=== PATIENT | male | born 1970 | race African-American/Black ===

== ENCOUNTER 2016-10-30 13:40 | Observation (INO) | payer OTHER ==
--- NOTE | 2016-10-30 13:49 | PDOC ---
History of Present Illness - General Chief Complaint: Lightheaded Stated Complaint: DIZZINESS/DISORIENTED Time Seen by Provider: 10/30/16 13:49 History Source: Patient, Old Records Exam Limitations: No Limitations - History of Present Illness Initial Comments: 10/30/16 14:01 45-year-old male with history of diabeteson metformin, and morbid of obesity status post lap band years ago presents to the emergency Department with complaints of dizziness and diaphoresis, feeling unbalanced. The symptoms started shortly after he did a cycling class at the gym. The patient says that he completed the class and felt okay to himself home and when he got out of the car became profusely diaphoretic. His son drove him to the ED. He denies chest pain, shortness of breath, palpitations. His main complaint is that he feels unbalanced and that the room is spinning. Shortly after arrival to the ED the patient also complained of nausea. The patient states that he has a h/o vertigo in the past and he is feeling very similar to that episode right now. Past History - Travel Traveled outside of the country in the last 30 days: No - Past Medical History Allergies/Adverse Reactions: Allergies Allergy/AdvReac Type Severity Reaction Status Date / Time Penicillins Allergy Unknown Verified 10/30/16 13:42 Home Medications: Ambulatory Orders Metformin HCl [Glucophage] 500 mg PO DAILY 09/12/15 Anemia: No Asthma: No Cancer: No Cardiac Disorders: No CVA: No COPD: No CHF: No Dementia: No Diabetes: Yes (type 2) Dialysis: No GI Disorders: No Disorders: No HTN: No Hypercholesterolemia: No Liver Disease: No Seizures: No Thyroid Disease: No - Surgical History Abdominal Surgery: No Appendectomy: No Cardiac Surgery: No Cholecystectomy: Yes Lung Surgery: No Neurologic Surgery: No Orthopedic Surgery: No - Psycho/Social/Smoking Cessation Hx Anxiety: No Suicidal Ideation: No Smoking Status: No Smoking History: Never smoked Have you smoked in the past 12 months: No Number of Cigarettes Smoked Daily: 0 Hx Alcohol Use: No Drug/Substance Use Hx: No Substance Use Type: Alcohol Hx Substance Use Treatment: No Review of Systems - Review of Systems Able to Perform ROS?: Yes Is the patient limited [place] proficient: No Constitutional: Yes: Diaphoresis, Weakness HEENTM: No: Symptoms Reported Respiratory: No: Symptoms reported Cardiac (ROS): No: Symptoms Reported ABD/GI: No: Symptoms Reported : No: Symptoms Reported Musculoskeletal: No: Symptoms Reported Integumentary: No: Symptoms Reported Neurological: Yes: Weakness, Dizziness *Physical Exam - Physical Exam Comments: 10/30/16 13:56 GENERAL: Obese male, diaphoretic in mild to moderate distress. Awake and alert. HEENT: Normocephalic, atraumatic. PERRLA, EOMI. No conjunctival pallor. Sclera are non- icteric. Moist mucous membranes. Oropharynx is clear. NECK: Supple. Full ROM. No JVD. No lymphadenopathy. CARDIOVASCULAR: Regular rate and rhythm. No murmurs, rubs, or gallops. Distal pulses are 2+ and symmetric. PULMONARY: No evidence of respiratory distress. Diffusely diminished breath sounds but lungs clear to auscultation bilaterally. No wheezing, rales or rhonchi. ABDOMINAL: Obese abdomen that is soft. Non-tender. Non-distended. No rebound or guarding. No organomegaly. Normoactive bowel sounds. MUSCULOSKELETAL Normal range of motion at all joints. No bony deformities or tenderness. No CVA tenderness. EXTREMITIES: No cyanosis. No clubbing. trace bipedal edema. No calf tenderness. SKIN: Warm and dry. Normal capillary refill. No rashes. No jaundice. NEUROLOGICAL: Alert, awake, appropriate. Difficult exam secondary to the patient's c/o dizziness. Grossly non-focal exam. PSYCHIATRIC: Cooperative. Good eye contact. Appropriate mood and affect. ED Treatment Course - LABORATORY CBC & Chemistry Diagram: 10/30/16 13:15 10/30/16 13:51 Medical Decision Making - Medical Decision Making 10/30/16 14:01 35-year-old male with history of diabetes and vertigo in the past presents to the emergency department with feeling unbalanced, nauseated and diaphoretic shortly after completing a rigorous exercise routine. Differential diagnosis includes but is not limited to: ACS, vertigo, cardiac arrhythmia, pulmonary edema, dehydration, electrolyte abnormality, toxic/metabolic derangement. Plan: 1. EKG-NSR at 65 bpm; normal axis, intervals and no acute ST-segment changes 2. Fingerstick glucose--normal 3. Labs 4. Chest x-ray 5. IV fluids for hydration 6. Antiemetics 7. Observe and reevaluate 10/30/16 15:37 Addendum: labs reviewed and are noted in the EMR. Troponin is negative; CT head is negative. I have re-evaluated the patient at this time and he is feeling improved although is still experiencing some dizziness and nausea in spite of ativan, benadryl and zofran. Will admit to telemtry observation for serial cardiac enzymes and further management of vertiginous symptoms. I have discussed the case with the patient's PCP, Raheem Rodriguez who agrees with the plan. *DC/Admit/Observation/Transfer Diagnosis at time of Disposition: Vertigo, Dehydration, Dizziness - Discharge Dispostion Condition at time of disposition: Stable Admit: Yes
[2016-10-30] MEDS ORDERED: ONDANSETRON 4 MG/2 ML VIAL IVPUSH ONE ×2 (13:50→14:06)
[2016-10-30] MEDS ORDERED: SODIUM CHLORIDE 1,000 ML IV STA ×2 (13:50→14:23)
[2016-10-30 14:04] LABS: BASOPHIL 1.2 % (0-2.0); MCH 28.3 pg (25.7-33.7); MCHC 32.6 g/dl (32.0-35.9); MEAN CELL VOLUME 86.9 fl (80-96); MEAN PLT VOLUME 9.3 fl (7.5-11.1); NEUTROPHILS 72.3 % (42.8-82.8); PLATELET COUNT 324 K/MM3 (134-434); RDW 13.8 % (11.9-15.9)
[2016-10-30] MEDS ORDERED: ONDANSETRON 4 MG/2 ML VIAL ONE (14:06)
[2016-10-30] MEDS ORDERED: LORAZEPAM CARPU-JECT 2 MG/ML DISP.SYRIN IVPUSH ONE (14:23)
[2016-10-30 14:24] LABS: ACTIVATED PTT 26.8 SECONDS (24.0-38.9)
[2016-10-30] MEDS ORDERED: LORAZEPAM CARPU-JECT 2 MG/ML DISP.SYRIN ONE (14:24)
[2016-10-30 14:28] LABS: CPK(DFH) 504 IU/L (38-174)
[2016-10-30 14:29] LABS: INR 1.12 (0.82-1.09); PROTHROMBIN TIME (PATIENT) 12.5 SEC (10.2-13.0)
[2016-10-30 14:30] LABS: ALBUMIN 4.1 g/dl (3.5-5.0); ALK PHOS 74 U/L (32-92); ANION GAP 11 (8-16); BILIRUBIN,TOTAL 1.4 mg/dl (0.2-1.0); CALCIUM 9.7 mg/dl (8.4-10.2); CO2 18 mmol/L (22-28); CREATININE 1.1 mg/dl (0.6-1.3); GLUCOSE,RANDOM 106 mg/dl (74-106); MAGNESIUM 1.9 mg/dL (1.8-2.4); PHOSPHOROUS 1.6 mg/dl (2.5-4.6); SGOT/AST 29 U/L (10-42); SGPT/ALT 19 U/L (10-40)
[2016-10-30 15:22] LABS: TROPONIN I (DFP) < 0.03 ng/ml (0.03-0.50)
[2016-10-30 15:23] LABS: CK MB 4.5 ng/ml (0.3-4.0)
[2016-10-30 16:59] LABS: URINE APPEARANCE Clear; URINE BILIRUBIN Negative (NEGATIVE); URINE BLOOD Negative (NEGATIVE); URINE GLUCOSE (UA) Negative (NEGATIVE); URINE KETONE 3+ (NEGATIVE); URINE LEUK ESTERASE Negative (NEGATIVE); URINE NITRITE Negative (NEGATIVE); URINE PROTEIN Negative (NEGATIVE); URINE UROBILINOGEN 0.2 E.U/dl (0.2-1.0)
[2016-10-30 17:00] LABS: URINE COLOR YELLOW
[2016-10-30 17:35] VITALS: BMI 49.6
[2016-10-30] MEDS ORDERED: INFLUENZA VACCINE 45 MCG/0.5 ML (MDV 16-17) IM ONE (17:35)
[2016-10-30] MEDS ORDERED: ONDANSETRON *ODT* 4 MG TABLET SL PRN (20:56)
[2016-10-30] MEDS ORDERED: MECLIZINE HCL 25 MG TABLET (FP) PO PRN (20:56)
[2016-10-30 21:58] LABS: CPK(DFH) 317 IU/L (38-174)
[2016-10-30 22:11] LABS: CK MB 3.7 ng/ml (0.3-4.0); TROPONIN I (DFP) < 0.03 ng/ml (0.03-0.50)
[2016-10-30] MEDS: INSULIN SLIDING SCALE (NOVOLOG) 1 VIAL SQ SCH (22:24)
[2016-10-30 22:42] VITALS: BP 113/53; PULSE 87; TEMP 98.5
[2016-10-31] MEDS ORDERED: metFORMIN HCL 500 MG TABLET (FP) PO SCH (07:00)
[2016-10-31 08:49] LABS: CPK(DFH) 252 IU/L (38-174)
[2016-10-31] MEDS: INSULIN SLIDING SCALE (NOVOLOG) 1 VIAL SQ SCH ×3 (09:28→16:19)
[2016-10-31] MEDS ORDERED: ASPIRIN 325 MG ENTERIC COATED TABLET (FP) PO SCH (10:00)
[2016-10-31 10:21] LABS: TROPONIN I (DFP) < 0.03 ng/ml (0.03-0.50)
--- NOTE | 2016-10-31 12:41 | EKG ---
Test Reason : Blood Pressure : / mmHG Vent. Rate : 066 BPM Atrial Rate : 066 BPM P-R Int : 170 ms QRS Dur : 102 ms QT Int : 434 ms P-R-T Axes : 045 045 033 degrees QTc Int : 454 ms NORMAL SINUS RHYTHM NORMAL ECG NO PREVIOUS ECGS AVAILABLE Confirmed by TASHA JONES MD ([id number]) on 10/31/2016 12:40:49 PM Referred By: Raheem Rodriguez Confirmed By:TASHA JONES MD
[2016-10-31 14:37] LABS: CK MB 2.3 ng/ml (0.3-4.0)
== END 2016-10-31 16:20 | disposition home or self-care (01) ==
LOC: FER 13:40 → SUPCPDRO 13:40 → FM/S 16:52
PROVIDERS: ADMIT Family Medicine; ATTEND Family Medicine
DX: R55 Syncope and collapse (principal); R42 Dizziness and giddiness; E66.9 Obesity, unspecified; Z68.42 Body mass index [BMI] 45.0-49.9, adult; Z71.3 Dietary counseling and surveillance; Z98.84 Bariatric surgery status; E11.9 Type 2 diabetes mellitus without complications; E86.0 Dehydration
CPT/HCPCS: 36415; 70450-TC; 71010-TC; 80053; 81003; 82550; 82553; 83690; 83735; 83880; 84100; 84484; 85025; 85610; 85730; 93005; 99285-25; G0378; Q2037

== ENCOUNTER 2017-07-16 16:48 | Emergency (ER) | payer OTHER ==
[2017-07-16 16:55] VITALS: BP 138/83; PULSE 84; TEMP 98.3; BMI 49.8
--- NOTE | 2017-07-16 16:57 | PDOC ---
History of Present Illness - General Chief Complaint: Pain Stated Complaint: ABD PAIN Time Seen by Provider: 07/16/17 16:55 History Source: Patient Exam Limitations: No Limitations - History of Present Illness Initial Comments: 07/16/17 17:52 46M with pmh of controlled diabetes present with right sided abdominal pain for the apst 10 Send in by pcp Raheem Rodriguez to evaluate for appendicitis. Patient is afebrile, but pain is sharp 10/10 and moves from the midline to the right aat the level of the umbilicus and prevented him from sleeping for the past 3 nights. , Not associated with meals Patient has gastric sleeve surgery 10years ago. Takes metformin and insulin for diabetes. 07/16/17 18:10 07/16/17 18:13 07/16/17 19:46 Past History - Past Medical History Allergies/Adverse Reactions: Allergies Allergy/AdvReac Type Severity Reaction Status Date / Time Penicillins Allergy Unknown Verified 07/16/17 16:50 Home Medications: Ambulatory Orders Metformin HCl [Glucophage] 500 mg PO BID 09/12/15 Anemia: No Asthma: No Cancer: No Cardiac Disorders: No CVA: No COPD: No CHF: No Dementia: No Diabetes: Yes (type 2) Dialysis: No GI Disorders: No Disorders: No HTN: No Hypercholesterolemia: No Liver Disease: No Seizures: No Thyroid Disease: No - Surgical History Abdominal Surgery: Yes (lap band 2008) Appendectomy: No Cardiac Surgery: No Cholecystectomy: Yes Lung Surgery: No Neurologic Surgery: No Orthopedic Surgery: Yes - Suicide/Smoking/Psychosocial Hx Smoking Status: No Smoking History: Current some day smoker Have you smoked in the past 12 months: Yes Number of Cigarettes Smoked Daily: 0 Cigars Per Day: 1 Information on smoking cessation initiated: Yes 'Breaking Loose' booklet given: 07/16/17 Hx Alcohol Use: (occasional) Drug/Substance Use Hx: No Substance Use Type: Alcohol Hx Substance Use Treatment: No Review of Systems - Review of Systems Able to Perform ROS?: Yes Is the patient limited Thai proficient: No Constitutional: Yes: Symptoms Reported HEENTM: No: Symptoms Reported Respiratory: No: Symptoms reported Cardiac (ROS): No: Symptoms Reported ABD/GI: Yes: Abdominal Distended. No: Rectal Bleeding, Vomiting, Indigestion, Abdominal cramping : No: Symptoms Reported *Physical Exam - Vital Signs Last Vital Signs Temp Pulse Resp BP Pulse Ox 98.3 F 84 18 138/83 97 07/16/17 16:48 07/16/17 16:48 07/16/17 16:48 07/16/17 16:48 07/16/17 16:48 - Physical Exam General Appearance: Yes: Nourished, Appropriately Dressed, Moderate Distress, Obese HEENT: positive: EOMI, [place], Normal ENT Inspection Neck: positive: Trachea midline, Normal Thyroid. negative: Tender Respiratory/Chest: positive: Lungs Clear, Normal Breath Sounds. negative: Chest Tender Cardiovascular: positive: Regular Rhythm, Regular Rate, S1, S2 Gastrointestinal/Abdominal: positive: Normal Bowel Sounds, Tender (epigastric), Soft, Protuberent ED Treatment Course - LABORATORY CBC & Chemistry Diagram: 07/16/17 17:40 07/16/17 18:00 Medical Decision Making - Medical Decision Making 07/16/17 18:14 46M with pmh of diabetes presents with right-sided abdominal pain. Labs and lytes ordered as well as lipase. Appendicitis (right sided abd. pain although not at mcBurney point location and afebrile) vs abd strictures vs gastritis. Abdominal US US pending (History of remote cholecystectomy remembered by patient ) Ct abd and pelvis with PO and IV contrast pending. 07/16/17 19:46 Patient signed out to Dr. Barba *DC/Admit/Observation/Transfer Diagnosis at time of Disposition: Abdominal pain - Discharge Dispostion Condition at time of disposition: Stable
[2017-07-16 17:54] LABS: MCH 29.3 pg (25.7-33.7); MCHC 33.5 g/dl (32.0-35.9); MEAN CELL VOLUME 87.6 fl (80-96); PLATELET COUNT 303 K/MM3 (134-434); WHITE BLOOD COUNT 8.6 K/mm3 (4.0-10.8)
[2017-07-16 18:31] LABS: ALBUMIN 3.6 g/dl (3.5-5.0); ALK PHOS 71 U/L (32-92); ANION GAP 8 (8-16); BILIRUBIN,TOTAL 0.6 mg/dl (0.2-1.0); CALCIUM 9.2 mg/dl (8.4-10.2); CO2 25 mmol/L (22-28); GLUCOSE,RANDOM 91 mg/dl (74-106); SGOT/AST 18 U/L (10-42); SGPT/ALT 15 U/L (10-40); TOT PROT 7.4 g/dl (6.4-8.3)
[2017-07-16 19:11] LABS: PLATELET ESTIMATE ADEQUATE (NORMAL)
[2017-07-16 20:03] LABS: PH,URINE 5.5 (4.5-8); URINE APPEARANCE Clear; URINE BILIRUBIN Negative (NEGATIVE); URINE GLUCOSE (UA) Negative (NEGATIVE); URINE KETONE Negative (NEGATIVE); URINE LEUK ESTERASE Negative (NEGATIVE); URINE NITRITE Negative (NEGATIVE); URINE PROTEIN Negative (NEGATIVE); URINE UROBILINOGEN 0.2 (0.2-1.0)
[2017-07-16 20:05] LABS: URINE BLOOD Trace-lysed (NEGATIVE); URINE COLOR YELLOW
[2017-07-16] MEDS ORDERED: ONDANSETRON 4 MG/2 ML VIAL IVPUSH ONE (20:08)
[2017-07-16] MEDS ORDERED: SODIUM CHLORIDE 1,000 ML IV STA (20:08)
[2017-07-16] MEDS ORDERED: morphine CARPU-JECT 4 MG/1 ML DISP.SYRIN IVPUSH ONE (20:08)
[2017-07-16] MEDS ORDERED: morphine SULFATE 4 MG/ML VIAL ONE (20:09)
[2017-07-16] MEDS ORDERED: ONDANSETRON 4 MG/2 ML VIAL ONE (20:09)
[2017-07-16 20:40] LABS: URINE BACTERIA FEW /hpf (NEGATIVE); URINE WBC 0-2 (3-5)
--- NOTE | 2017-07-16 20:41 | PDOC ---
Attending Attestation - Resident Resident Name: CrowMati - ED Attending Attestation I have performed the following: I have examined & evaluated the patient, The case was reviewed & discussed with the resident, I agree w/resident's findings & plan, Exceptions are as noted - HPI HPI: 07/16/17 20:35 Right sided abdominal pain, hx of appendectomy and cholecystectomy - Physicial Exam PE: 07/16/17 20:35 Diffuse Tenderness, Morbidly Obese, No Peritoneal Signs - Medical Decision Making 07/16/17 20:[address] all non-diagnostic/benign DX is abdominal pain, cause yet to be determined. Will offer pain and nausea meds and have patient follow up as an outpatient with PMD Discharge Disposition - Diagnosis Abdominal pain Qualifiers: Abdominal location: generalized Qualified Code(s): R10.84 - Generalized abdominal pain; R10.84 - Generalized abdominal pain - Discharge Dispostion Condition at time of disposition: Stable Last Admission D/C Date: 07/19/10 Admit: No - Patient Instructions Additional Instructions: Mr Conteh. Sorry that you are hurting. Your lab tests are normal and your CT scan does not show any acute problem. It is not clear why you are hurting. I wrote a prescription for pain medicine and nausea medicine, Percocet and Zofran ODT. Use the to stay comfortable and follow up with your regular doctor(s) later this week. Return to us if worse or any new symptoms occur. Best- Dr. Jacob Barba
== END 2017-07-16 20:59 | disposition home or self-care (01) ==
LOC: FER 16:48
PROC: 3E033NZ Introduction of Analgesics, Hypnotics, Sedatives into Peripheral Vein, Percutaneous Approach (ICD-10-PCS; principal; 2017-07-16)
PROC: 3E033GC Introduction of Other Therapeutic Substance into Peripheral Vein, Percutaneous Approach (ICD-10-PCS; 2017-07-16)
PROC: 3E0337Z Introduction of Electrolytic and Water Balance Substance into Peripheral Vein, Percutaneous Approach (ICD-10-PCS; 2017-07-16)
DX: R10.9 Unspecified abdominal pain (principal); Z79.84 Long term (current) use of oral hypoglycemic drugs; Z98.84 Bariatric surgery status; F17.210 Nicotine dependence, cigarettes, uncomplicated; E11.9 Type 2 diabetes mellitus without complications
CPT/HCPCS: 36415; 74177-TC; 76705-TC; 80053; 81003; 81015; 82247; 83690; 85025; 99283-25

== ENCOUNTER 2019-01-10 01:20 | Emergency (ER) | payer OTHER ==
[2019-01-10 01:29] VITALS: BP 116/82; PULSE 84; TEMP 98.5; BMI 49.9
--- NOTE | 2019-01-10 01:32 | PDOC ---
History of Present Illness - General Chief Complaint: Pain Stated Complaint: FINGERTIP SWELLING Time Seen by Provider: 01/10/19 01:31 - History of Present Illness Initial Comments: 01/10/19 01:59 This 48-year-old man with a history of type II DM and morbid obesity presents with several hour history of pain and mild swelling in the distal phalanx of the left third finger. Patient works at [employer]; he noted discomfort in the finger while working this evening. No history of trauma to the area. He denies biting his fingernails and has no previous history of paronychia. He has noted no drainage from the nail. No history of fever/ chills. He denies infection or colonization with resistant organisms. Patient has a history of penicillin ALLERGY (unknown type of ALLERGIC response) Medications Metformin Diclofenac (taken twice daily for knee pain) Past History - Past Medical History Allergies/Adverse Reactions: Allergies Allergy/AdvReac Type Severity Reaction Status Date / Time Penicillins Allergy Unknown Verified 07/16/17 16:50 Home Medications: Ambulatory Orders Metformin HCl [Glucophage] 500 mg PO BID 09/12/15 Diclofenac Sodium 75 mg PO BID 01/10/19 Sulfamethoxazole/Trimethoprim [Bactrim Ds -] 1 tab PO BID #10 tablet 01/10/19 Anemia: No Asthma: No Cancer: No Cardiac Disorders: No CVA: No COPD: No CHF: No Dementia: No Diabetes: Yes (type 2) Dialysis: No GI Disorders: No Disorders: No HTN: No Hypercholesterolemia: No Liver Disease: No Seizures: No Thyroid Disease: No - Surgical History Abdominal Surgery: Yes (lap band 2008) Appendectomy: No Cardiac Surgery: No Cholecystectomy: Yes Lung Surgery: No Neurologic Surgery: No Orthopedic Surgery: Yes - Suicide/Smoking/Psychosocial Hx Smoking Status: No Smoking History: Never smoked Have you smoked in the past 12 months: Yes Number of Cigarettes Smoked Daily: 0 Cigars Per Day: 1 'Breaking Loose' booklet given: 07/16/17 Hx Alcohol Use: (occasional) Drug/Substance Use Hx: No Substance Use Type: Alcohol Hx Substance Use Treatment: No Review of Systems - Review of Systems Able to Perform ROS?: Yes Comments:: 12 point review of systems is negative except for what is noted in the history of present illness *Physical Exam - Vital Signs Last Vital Signs Temp Pulse Resp BP Pulse Ox 98.5 F 84 16 116/82 96 01/10/19 01:23 01/10/19 01:23 01/10/19 01:23 01/10/19 01:23 01/10/19 01:23 - Physical Exam Comments: GENERAL: Adult male, morbidly obese, alert and oriented 3, in no acute distress HEAD: Normal with no signs of trauma. EYES: PERRLA, EOMI, sclera anicteric, conjunctiva clear. EXTREMITIES: Left third finger- moderate tenderness with mild edema ulnar aspect of distal phalanx at nail edge without fluctuance, erythema or discharge Moderate edema of palmar aspect of distal phalanx No pain with active or passive movement of the finger Remainder of the extremity exam is normal NEUROLOGICAL: Cranial nerves II through XII grossly intact. Normal speech. No focal neurological deficits. MUSCULOSKELETAL: Back non-tender to palpation, no CVA tenderness Medical Decision Making - Medical Decision Making This 48-year-old man with a history of morbid obesity and type 2 DM presents with a few hour history of swelling and pain in the distal phalanx of the third finger of his left hand. No history of trauma noted. Exam consistent with early paronychia. Since there is no fluctuance in the area, incision and drainage not performed at this time. Instead, the patient will be started on antibiotics and strongly urged to soak the finger in warm water at least 3 times a day, for 15 minutes each time. Bactrim DS 1 tablet given here and patient will be given a five-day course of the antibiotic. 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 Patient should return to the ER if there is increase in swelling/ pain or if there is fever/chills *DC/Admit/Observation/Transfer Diagnosis at time of Disposition: Paronychia of left middle finger - Discharge Dispostion Disposition: HOME Condition at time of disposition: Stable - Prescriptions Prescriptions: Sulfamethoxazole/Trimethoprim [Bactrim Ds -] 1 tab PO BID #10 tablet - Referrals Referrals: Raheem Rodriguez MD [Primary Care Provider] - - Patient Instructions Printed Discharge Instructions: Paronychia Additional Instructions: Soak finger in warm water at least 3 times a day for 15 minutes each time for the next 3-4 days Bactrim DS twice a day for the next 5 days; next dose tomorrow morning Tylenol as needed for pain; elevate finger as much as possible Return to ER if you have increase in swelling/pain or you have drainage from edge of the fingernail - Post Discharge Activity Forms/Work/School Notes: Back to Work
[2019-01-10] MEDS ORDERED: SULFAMETHOXAZOLE/TRIMETHOPRIM 800MG/160MG D.S. TABLET PO ONE (01:42)
[2019-01-10] MEDS ORDERED: IBUPROFEN 600 MG TABLET (FP) PO ONE ×2 (01:43→01:44)
[2019-01-10] MEDS ORDERED: SULFAMETHOXAZOLE/TRIMETHOPRIM 800MG/160MG D.S. TABLET ONE (01:44)
== END 2019-01-10 01:56 | disposition home or self-care (01) ==
LOC: FER 01:20
DX: L03.012 Cellulitis of left finger (principal); E11.9 Type 2 diabetes mellitus without complications; E66.01 Morbid (severe) obesity due to excess calories; Z68.42 Body mass index [BMI] 45.0-49.9, adult; Z79.84 Long term (current) use of oral hypoglycemic drugs; Z88.0 Allergy status to penicillin; Z98.84 Bariatric surgery status
CPT/HCPCS: 99281-25

== ENCOUNTER 2020-10-05 07:27 | Emergency (ER) | payer OTHER ==
[2020-10-05] MEDS ORDERED: ACETAMINOPHEN 325 MG TABLET (FP) PO ONE (07:35)
[2020-10-05] MEDS ORDERED: ACETAMINOPHEN 325 MG TABLET (FP) ONE (07:36)
[2020-10-05 07:40] VITALS: BP 142/86; PULSE 76; TEMP 98.9; BMI 40.2
[2020-10-05] MEDS ORDERED: KETOROLAC TROMETHAMINE 30 MG/1 ML VIAL IM ONE (09:54)
[2020-10-05] MEDS ORDERED: KETOROLAC TROMETHAMINE 30 MG/1 ML VIAL ONE (10:03)
== END 2020-10-05 10:09 | disposition home or self-care (01) ==
LOC: FER 07:27
PROC: 3E0233Z Introduction of Anti-inflammatory into Muscle, Percutaneous Approach (ICD-10-PCS; principal; 2020-10-05)
DX: S09.90XA Unspecified injury of head, initial encounter (principal); R51.9 Headache, unspecified; M62.838 Other muscle spasm
CPT/HCPCS: 70450-TC; 99284-25; C9803; U0003

== ENCOUNTER 2021-02-04 01:04 | Emergency (ER) | payer OTHER ==
[2021-02-04] MEDS ORDERED: KETOROLAC TROMETHAMINE 60 MG/2 ML VIAL ONE (01:35)
[2021-02-04] MEDS ORDERED: KETOROLAC TROMETHAMINE 60 MG/2 ML VIAL IM ONE (01:35)
[2021-02-04 01:41] VITALS: BP 112/76; PULSE 86; TEMP 98.2; BMI 40.2
== END 2021-02-04 01:53 | disposition home or self-care (01) ==
LOC: FER 01:04
PROC: 3E0233Z Introduction of Anti-inflammatory into Muscle, Percutaneous Approach (ICD-10-PCS; principal; 2021-02-04)
DX: M54.12 Radiculopathy, cervical region (principal)
CPT/HCPCS: 99284-25

== ENCOUNTER 2021-03-08 11:46 | Emergency (ER) | payer OTHER ==
[2021-03-08 11:54] VITALS: BP 132/83; PULSE 78; TEMP 98.1; BMI 39.7
== END 2021-03-08 12:19 | disposition home or self-care (01) ==
LOC: FER 11:46
DX: S13.4XXA Sprain of ligaments of cervical spine, initial encounter (principal)
CPT/HCPCS: 99281-25

== ENCOUNTER 2021-05-07 10:29 | Emergency (ER) | payer OTHER ==
[2021-05-07 10:37] VITALS: BP 122/80; PULSE 79; TEMP 98.6; BMI 38.9
[2021-05-07] MEDS ORDERED: IBUPROFEN 600 MG TABLET (FP) PO ONE ×2 (10:47)
== END 2021-05-07 11:14 | disposition home or self-care (01) ==
LOC: FER 10:29
DX: M25.562 Pain in left knee (principal)
CPT/HCPCS: 73560-TC-LT-FY; 99283-25

== ENCOUNTER 2021-11-27 22:13 | Inpatient (IN) | payer OTHER ==
[2021-11-27 22:25] VITALS: BMI 44.0
[2021-11-27] MEDS ORDERED: ACETAMINOPHEN 1000 MG/100 ML BAG IVPB ONE (22:31)
[2021-11-27] MEDS ORDERED: ACETAMINOPHEN INJECTION 100 ML IVPB ONE (22:48)
[2021-11-27 23:20] LABS: ALBUMIN 3.6 g/dl (3.4-5.0); BILIRUBIN,TOTAL 1.2 mg/dl (0.2-1); CALCIUM 9.2 mg/dl (8.5-10); TOT PROT 7.3 g/dl (6.4-8.2)
[2021-11-27] MEDS ORDERED: VANCOMYCIN 1 GM in D5W (PRE-DOCKED) 1,000 MG/250 ML IVPB ONE (23:41)
[2021-11-27] MEDS ORDERED: CLINDAMYCIN 900 MG PREMIX IVPB 900 MG/50 ML BAG IVPB ONE (23:45)
[2021-11-27 23:56] LABS: BASO % 0.5 % (0-2.0); EOS % 0.5 % (0-4.5); HEMATOCRIT 38.5 % (35.4-49); HEMOGLOBIN 12.7 GM/dL (11.7-16.9); LYMPH % 7.6 % (8-40); MCH 29.7 pg (25.7-33.7); MEAN CELL VOLUME 90.1 fl (80-96); MEAN PLT VOLUME 8.8 fl (7.5-11.1); NEUT % 85.4 % (42.8-82.8); PLATELET COUNT 274 10^3/uL (134-434); RBC 4.27 M/mm3 (4.00-5.60); RDW 14.8 % (11.9-15.9); WHITE BLOOD COUNT 15.8 K/mm3 (4.0-10.0)
[2021-11-27] MEDS ORDERED: CLINDAMYCIN PHOSPHATE 600 MG/4 ML VIAL ONE (23:56)
[2021-11-27] MEDS ORDERED: VANCOMYCIN 1,000 MG VIAL (RESTRICTED TO ID ONLY) ONE (23:56)
[2021-11-27] MEDS ORDERED: CLINDAMYCIN PHOSPHATE 300 MG/2 ML VIAL ONE ×2 (23:56→23:58)
[2021-11-27] MEDS ORDERED: CLINDAMYCIN 600MG PREMIX IVPB 600 MG/50 ML BAG IVPB ONE (23:57)
[2021-11-28 07:47] LABS: CALCIUM 8.7 mg/dl (8.5-10); CREATININE 1.1 mg/dl (0.55-1.3)
[2021-11-28] MEDS: ACETAMINOPHEN 325 MG TABLET (FP) PO PRN ×3 (09:00→19:17)
[2021-11-28] MEDS: HEPARIN NA (PORCINE) 5,000 UNITS/ML 1ML VIAL SQ SCH ×2 (09:47→21:38)
[2021-11-28] MEDS ORDERED: CLINDAMYCIN 600MG PREMIX IVPB 600 MG/50 ML BAG IVPB SCH (10:00)
[2021-11-28 10:21] LABS: BASO % 0.3 % (0-2.0); EOS % 0.6 % (0-4.5); HEMATOCRIT 37.3 % (35.4-49); HEMOGLOBIN 12.5 GM/dL (11.7-16.9); LYMPH % 7.8 % (8-40); MCH 30.3 pg (25.7-33.7); MCHC 33.4 g/dl (32.0-35.9); MEAN CELL VOLUME 90.6 fl (80-96); MONO % 7.7 % (3.8-10.2); NEUT % 83.6 % (42.8-82.8); PLATELET COUNT 261 10^3/uL (134-434); RBC 4.11 M/mm3 (4.00-5.60); RDW 14.4 % (11.9-15.9); WHITE BLOOD COUNT 14.8 K/mm3 (4.0-10.0)
[2021-11-28] MEDS: INSULIN SLIDING SCALE (NOVOLOG) 1 VIAL SQ SCH ×2 (11:54→16:49)
[2021-11-28] MEDS ORDERED: VANCOMYCIN/WATER BAGS 1,250 MG/250 ML BAG IVPB SCH (13:00)
[2021-11-28] MEDS: MELATONIN 5 MG TABLETS PO PRN (21:37)
[2021-11-29] MEDS: ACETAMINOPHEN 325 MG TABLET (FP) PO PRN ×4 (01:11→21:58)
[2021-11-29] MEDS: INSULIN SLIDING SCALE (NOVOLOG) 1 VIAL SQ SCH ×3 (06:58→16:53)
[2021-11-29 08:02] LABS: CALCIUM 8.6 mg/dl (8.5-10)
[2021-11-29] MEDS: HEPARIN NA (PORCINE) 5,000 UNITS/ML 1ML VIAL SQ SCH ×2 (09:24→21:27)
[2021-11-29 09:46] LABS: BASO % 0.2 % (0-2.0); EOS % 0.4 % (0-4.5); HEMOGLOBIN 12.3 GM/dL (11.7-16.9); LYMPH % 6.5 % (8-40); MCH 30.3 pg (25.7-33.7); MCHC 33.4 g/dl (32.0-35.9); MEAN CELL VOLUME 90.6 fl (80-96); MEAN PLT VOLUME 8.9 fl (7.5-11.1); MONO % 7.7 % (3.8-10.2); NEUT % 85.2 % (42.8-82.8); PLATELET COUNT 254 10^3/uL (134-434); RBC 4.08 M/mm3 (4.00-5.60); RDW 14.6 % (11.9-15.9); WHITE BLOOD COUNT 15.1 K/mm3 (4.0-10.0)
[2021-11-29] MEDS ORDERED: LIDOCAINE HCL 1%, 10 MG/ML (50 mL VIAL) SQ ONE (11:29)
[2021-11-29] MEDS ORDERED: LIDOCAINE HCL 1%, 10 MG/ML (20ML VIAL) SQ ONE (12:00)
[2021-11-29] MEDS ORDERED: oxyCODONE HCL 5 MG TABLET PO PRN (15:44)
[2021-11-29] MEDS ORDERED: morphine SULFATE 4 MG/ML VIAL SQ PRN (15:44)
[2021-11-29] MEDS: oxyCODONE HCL 5 MG TABLET PO PRN (20:05)
[2021-11-30] MEDS: MELATONIN 5 MG TABLETS PO PRN (03:43)
[2021-11-30] MEDS: INSULIN SLIDING SCALE (NOVOLOG) 1 VIAL SQ SCH ×3 (06:53→16:43)
[2021-11-30 07:47] LABS: ALBUMIN 2.7 g/dl (3.4-5.0); BILIRUBIN,TOTAL 0.8 mg/dl (0.2-1); CALCIUM 8.6 mg/dl (8.5-10); MAGNESIUM 1.8 mg/dL (1.8-2.4); TOT PROT 6.4 g/dl (6.4-8.2)
[2021-11-30 08:18] LABS: BASO % 0.3 % (0-2.0); EOS % 0.6 % (0-4.5); HEMATOCRIT 34.4 % (35.4-49); HEMOGLOBIN 11.7 GM/dL (11.7-16.9); LYMPH % 7.1 % (8-40); MCH 30.3 pg (25.7-33.7); MCHC 33.9 g/dl (32.0-35.9); MEAN CELL VOLUME 89.4 fl (80-96); MEAN PLT VOLUME 8.4 fl (7.5-11.1); MONO % 9.5 % (3.8-10.2); NEUT % 82.5 % (42.8-82.8); PLATELET COUNT 252 10^3/uL (134-434); RBC 3.85 M/mm3 (4.00-5.60); RDW 14.3 % (11.9-15.9); WHITE BLOOD COUNT 13.4 K/mm3 (4.0-10.0)
[2021-11-30] MEDS: HEPARIN NA (PORCINE) 5,000 UNITS/ML 1ML VIAL SQ SCH ×2 (09:55→21:22)
[2021-11-30] MEDS: oxyCODONE HCL 5 MG TABLET PO PRN (16:17)
[2021-11-30] MEDS: ACETAMINOPHEN 325 MG TABLET (FP) PO PRN (20:11)
[2021-12-01] MEDS: oxyCODONE HCL 5 MG TABLET PO PRN ×4 (00:48→20:27)
[2021-12-01] MEDS: INSULIN SLIDING SCALE (NOVOLOG) 1 VIAL SQ SCH ×3 (06:21→17:01)
[2021-12-01] MEDS: ACETAMINOPHEN 325 MG TABLET (FP) PO PRN (06:23)
[2021-12-01] MEDS: HEPARIN NA (PORCINE) 5,000 UNITS/ML 1ML VIAL SQ SCH ×2 (09:44→21:34)
[2021-12-01 09:57] LABS: BASO % 0.6 % (0-2.0); HEMATOCRIT 37.3 % (35.4-49); HEMOGLOBIN 12.5 GM/dL (11.7-16.9); LYMPH % 9.8 % (8-40); MCH 30.2 pg (25.7-33.7); MCHC 33.5 g/dl (32.0-35.9); MEAN CELL VOLUME 90.3 fl (80-96); MEAN PLT VOLUME 9.1 fl (7.5-11.1); MONO % 9.7 % (3.8-10.2); NEUT % 78.9 % (42.8-82.8); PLATELET COUNT 296 10^3/uL (134-434); RBC 4.13 M/mm3 (4.00-5.60); RDW 14.5 % (11.9-15.9); WHITE BLOOD COUNT 14.3 K/mm3 (4.0-10.0)
[2021-12-01 10:15] LABS: BLOOD UREA NITROGEN 13.7 mg/dL (7-18); CALCIUM 9.1 mg/dL (8.5-10.1); MAGNESIUM 2.2 mg/dL (1.8-2.4)
[2021-12-01 10:19] LABS: BILIRUBIN,TOTAL 0.6 mg/dL (0.2-1)
[2021-12-01 10:20] LABS: TOT PROT 7.1 g/dl (6.4-8.2)
[2021-12-01] MEDS: MELATONIN 5 MG TABLETS PO PRN (22:31)
[2021-12-02] MEDS: ACETAMINOPHEN 325 MG TABLET (FP) PO PRN ×3 (00:30→23:49)
[2021-12-02] MEDS: oxyCODONE HCL 5 MG TABLET PO PRN ×3 (06:43→21:14)
[2021-12-02] MEDS: INSULIN SLIDING SCALE (NOVOLOG) 1 VIAL SQ SCH ×3 (07:27→17:11)
[2021-12-02] MEDS: HEPARIN NA (PORCINE) 5,000 UNITS/ML 1ML VIAL SQ SCH ×2 (09:50→21:15)
[2021-12-02 09:53] LABS: BASO % 0.4 % (0-2.0); EOS % 1.3 % (0-4.5); HEMATOCRIT 35.4 % (35.4-49); HEMOGLOBIN 11.7 GM/dL (11.7-16.9); LYMPH % 10.7 % (8-40); MCH 29.8 pg (25.7-33.7); MEAN CELL VOLUME 90.3 fl (80-96); MEAN PLT VOLUME 8.9 fl (7.5-11.1); NEUT % 75.6 % (42.8-82.8); PLATELET COUNT 317 10^3/uL (134-434); RBC 3.92 M/mm3 (4.00-5.60); RDW 14.1 % (11.9-15.9); WHITE BLOOD COUNT 12.2 K/mm3 (4.0-10.0)
[2021-12-02 10:04] LABS: CREATININE 0.9 mg/dL (0.55-1.3)
[2021-12-02 10:05] LABS: CALCIUM 8.7 mg/dL (8.5-10.1)
[2021-12-02 10:06] LABS: ALBUMIN 2.7 g/dl (3.4-5.0); BILIRUBIN,TOTAL 0.5 mg/dL (0.2-1); BLOOD UREA NITROGEN 9.6 mg/dL (7-18); MAGNESIUM 2.2 mg/dL (1.8-2.4); TOT PROT 6.6 g/dl (6.4-8.2)
[2021-12-02] MEDS ORDERED: oxyCODONE HCL 5 MG TABLET PO PRN (16:54)
[2021-12-02] MEDS: MELATONIN 5 MG TABLETS PO PRN (21:14)
[2021-12-03] MEDS: oxyCODONE HCL 5 MG TABLET PO PRN ×4 (05:08→22:04)
[2021-12-03] MEDS: INSULIN SLIDING SCALE (NOVOLOG) 1 VIAL SQ SCH ×3 (06:14→18:03)
[2021-12-03 09:28] LABS: BASO % 0.5 % (0-2.0); EOS % 1.8 % (0-4.5); HEMATOCRIT 35.7 % (35.4-49); HEMOGLOBIN 11.6 GM/dL (11.7-16.9); LYMPH % 15.5 % (8-40); MCH 29.4 pg (25.7-33.7); MCHC 32.4 g/dl (32.0-35.9); MEAN CELL VOLUME 90.6 fl (80-96); MEAN PLT VOLUME 8.8 fl (7.5-11.1); MONO % 12.9 % (3.8-10.2); NEUT % 69.3 % (42.8-82.8); PLATELET COUNT 351 10^3/uL (134-434); RBC 3.94 M/mm3 (4.00-5.60); RDW 14.2 % (11.9-15.9); WHITE BLOOD COUNT 12.8 K/mm3 (4.0-10.0)
[2021-12-03] MEDS: HEPARIN NA (PORCINE) 5,000 UNITS/ML 1ML VIAL SQ SCH ×2 (09:54→22:03)
[2021-12-03 09:56] LABS: ALBUMIN 2.5 g/dl (3.4-5.0); BLOOD UREA NITROGEN 10.2 mg/dL (7-18); CALCIUM 8.1 mg/dL (8.5-10.1); MAGNESIUM 2.1 mg/dL (1.8-2.4)
[2021-12-03 10:00] LABS: PHOSPHOROUS 3.4 mg/dL (2.5-4.9)
[2021-12-03 10:01] LABS: BILIRUBIN,TOTAL 0.4 mg/dL (0.2-1); TOT PROT 6.6 g/dl (6.4-8.2)
[2021-12-03] MEDS: ACETAMINOPHEN 325 MG TABLET (FP) PO PRN (22:03)
[2021-12-03] MEDS: MELATONIN 5 MG TABLETS PO PRN (23:32)
[2021-12-04] MEDS: oxyCODONE HCL 5 MG TABLET PO PRN ×3 (05:08→22:28)
[2021-12-04] MEDS: ACETAMINOPHEN 325 MG TABLET (FP) PO PRN (05:23)
[2021-12-04] MEDS: ONDANSETRON 4 MG/2 ML VIAL IVPUSH ONE ×2 (05:23→05:25)
[2021-12-04] MEDS: INSULIN SLIDING SCALE (NOVOLOG) 1 VIAL SQ SCH ×3 (06:38→16:45)
[2021-12-04] MEDS: HEPARIN NA (PORCINE) 5,000 UNITS/ML 1ML VIAL SQ SCH (09:34)
[2021-12-04 10:21] LABS: BASO % 0.2 % (0-2.0); EOS % 1.1 % (0-4.5); HEMOGLOBIN 11.6 GM/dL (11.7-16.9); LYMPH % 10.7 % (8-40); MCH 29.9 pg (25.7-33.7); MCHC 33.1 g/dl (32.0-35.9); MEAN CELL VOLUME 90.1 fl (80-96); MEAN PLT VOLUME 8.5 fl (7.5-11.1); MONO % 9.9 % (3.8-10.2); NEUT % 78.1 % (42.8-82.8); PLATELET COUNT 370 10^3/uL (134-434); RBC 3.88 M/mm3 (4.00-5.60); WHITE BLOOD COUNT 12.4 K/mm3 (4.0-10.0)
[2021-12-04] MEDS: MELATONIN 5 MG TABLETS PO PRN (22:28)
[2021-12-05] MEDS: INSULIN SLIDING SCALE (NOVOLOG) 1 VIAL SQ SCH ×3 (07:45→17:37)
[2021-12-05] MEDS ORDERED: MIDAZOLAM HCL 2 MG/2 ML SINGLE DOSE VIAL ONE ×2 (13:38)
[2021-12-05] MEDS ORDERED: PROPOFOL 20 ML ONE ×2 (13:38→14:34)
[2021-12-05] MEDS ORDERED: SUCCINYLCHOLINE CHLORIDE 200 MG/10 ML SYRINGE ONE (13:38)
[2021-12-05] MEDS ORDERED: fentaNYL CITRATE 250 MCG/5 ML VIAL ONE (14:23)
[2021-12-05] MEDS ORDERED: ONDANSETRON 4 MG/2 ML VIAL IVPUSH PRN (14:28)
[2021-12-05] MEDS: LACTATED RINGERS SOLUTION 1,000 ML IV SCH (15:48)
[2021-12-05] MEDS: oxyCODONE HCL 5 MG TABLET PO PRN ×2 (17:40→21:27)
[2021-12-05] MEDS: ACETAMINOPHEN 325 MG TABLET (FP) PO PRN (17:40)
[2021-12-05] MEDS: MELATONIN 5 MG TABLETS PO PRN (21:26)
[2021-12-06] MEDS: oxyCODONE HCL 5 MG TABLET PO PRN (06:18)
[2021-12-06] MEDS: INSULIN SLIDING SCALE (NOVOLOG) 1 VIAL SQ SCH ×3 (06:28→16:48)
[2021-12-06 13:25] LABS: BASO % 0.6 % (0-2.0); EOS % 1.7 % (0-4.5); HEMATOCRIT 37.2 % (35.4-49); HEMOGLOBIN 12.5 GM/dL (11.7-16.9); LYMPH % 14.6 % (8-40); MCHC 33.6 g/dl (32.0-35.9); MEAN CELL VOLUME 89.2 fl (80-96); MEAN PLT VOLUME 7.6 fl (7.5-11.1); MONO % 8.6 % (3.8-10.2); NEUT % 74.5 % (42.8-82.8); PLATELET COUNT 404 10^3/uL (134-434); RBC 4.17 M/mm3 (4.00-5.60); RDW 14.5 % (11.9-15.9); WHITE BLOOD COUNT 9.8 K/mm3 (4.0-10.0)
[2021-12-06] MEDS: HEPARIN NA (PORCINE) 5,000 UNITS/ML 1ML VIAL SQ SCH ×2 (13:32→22:24)
[2021-12-06] MEDS: POLYETHYLENE GLYCOL (HEALTHYLAX) 3350 17 GM PACKET PO SCH ×2 (16:22→16:45)
[2021-12-06] MEDS: ACETAMINOPHEN 325 MG TABLET (FP) PO PRN (19:47)
[2021-12-06] MEDS: LACTATED RINGERS SOLUTION 1,000 ML IV SCH (23:04)
[2021-12-06] MEDS: DOCUSATE SODIUM 100 MG CAPSULE (FP) PO SCH (23:05)
[2021-12-07] MEDS: HEPARIN NA (PORCINE) 5,000 UNITS/ML 1ML VIAL SQ SCH ×2 (06:24→14:13)
[2021-12-07] MEDS: oxyCODONE HCL 5 MG TABLET PO PRN (06:31)
[2021-12-07] MEDS: INSULIN SLIDING SCALE (NOVOLOG) 1 VIAL SQ SCH ×2 (06:32→11:20)
[2021-12-07] MEDS: POLYETHYLENE GLYCOL (HEALTHYLAX) 3350 17 GM PACKET PO SCH (09:42)
[2021-12-07] MEDS: DOCUSATE SODIUM 100 MG CAPSULE (FP) PO SCH (09:42)
[2021-12-07 14:33] VITALS: BP 95/61; PULSE 78; TEMP 98.6
== END 2021-12-07 16:12 | disposition home or self-care (01) | DRG 603 ==
LOC: FER 22:13 → UNDOADMOB 11-28 01:56 → INTOOBSV 11-28 01:56 → FM/S 11-28 01:56 → OBSVTOIN 11-30 13:48
PROVIDERS: ADMIT Internal Medicine; ATTEND Nurse Practitioner Acute Care
PROC: 0J993ZZ Drainage of Buttock Subcutaneous Tissue and Fascia, Percutaneous Approach (ICD-10-PCS; 2021-11-29)
PROC: 0J9B0ZZ Drainage of Perineum Subcutaneous Tissue and Fascia, Open Approach (ICD-10-PCS; 2021-12-05)
PROC: 0J990ZZ Drainage of Buttock Subcutaneous Tissue and Fascia, Open Approach (ICD-10-PCS; principal; 2021-12-05 14:33)
DX: L02.31 Cutaneous abscess of buttock (principal); Z68.41 Body mass index [BMI] 40.0-44.9, adult; K61.0 Anal abscess; E66.01 Morbid (severe) obesity due to excess calories; E11.9 Type 2 diabetes mellitus without complications; K61.39 Other ischiorectal abscess; D72.829 Elevated white blood cell count, unspecified
CPT/HCPCS: 36415; 71045-TC-FY; 72192-TC; 80048; 80053; 81003; 82962; 83605; 83735; 84100; 85025; 87040; 87070; 87076; 87086; 87205; 87426; 93005; 94760; 99285-25; C9803-CS; G0378; J1644; U0003; U0005

== ENCOUNTER 2023-02-27 01:46 | Emergency (ER) | payer OTHER ==
[2023-02-27 01:56] VITALS: BP 133/83; PULSE 81; RESP 17; TEMP 97.9; BMI 48.1
== END 2023-02-27 02:15 | disposition home or self-care (01) ==
LOC: FER 01:46
DX: S31.159A Open bite of abdominal wall, unspecified quadrant without penetration into peritoneal cavity, initial encounter (principal); Y04.1XXA Assault by human bite, initial encounter
CPT/HCPCS: 99283-25

== ENCOUNTER 2023-12-26 17:34 | Emergency (ER) | payer OTHER ==
[2023-12-26 17:46] VITALS: BP 147/89; PULSE 81; RESP 18; TEMP 98.3; BMI 46.7
[2023-12-26] MEDS ORDERED: ACETAMINOPHEN 325 MG TABLET (FP) ONE (18:19)
[2023-12-26] MEDS: ACETAMINOPHEN 325 MG TABLET (FP) PO ONE (18:23)
== END 2023-12-26 19:59 | disposition home or self-care (01) ==
LOC: FER 17:34
DX: S00.93XA Contusion of unspecified part of head, initial encounter (principal); S00.83XA Contusion of other part of head, initial encounter; S06.0X0A Concussion without loss of consciousness, initial encounter; R51.9 Headache, unspecified; R42 Dizziness and giddiness; Y04.8XXA Assault by other bodily force, initial encounter; Y93.89 Activity, other specified; Y92.009 Unspecified place in unspecified non-institutional (private) residence as the place of occurrence of the external cause
CPT/HCPCS: 70450-TC; 70486-TC; 99284-25

== ENCOUNTER 2024-02-05 16:20 | Emergency (ER) | payer OTHER ==
[2024-02-05 16:42] VITALS: BP 134/106; PULSE 80; RESP 20; TEMP 97.8; BMI 46.0
== END 2024-02-05 21:48 | disposition home or self-care (01) ==
LOC: FER 16:20
DX: S06.0X0A Concussion without loss of consciousness, initial encounter (principal); M79.605 Pain in left leg; M25.562 Pain in left knee; M79.672 Pain in left foot; W50.0XXA Accidental hit or strike by another person, initial encounter
CPT/HCPCS: 70450-TC; 73564-TC-LT-FY; 73590-TC-LT-FY; 73630-TC-LT; 99284-25